=== PATIENT | female | born 1935 | race Caucasian/White ===

== ENCOUNTER 2020-01-30 21:16 | Emergency (ER) | payer OTHER ==
[~2020-01-30] VITALS: Ht 172.7 cm; Wt 77.1 kg
[2020-01-30 21:35] VITALS: BP_SYST 150
[2020-01-30] MEDS ORDERED: BACITRACIN 1 GM OINT TP ONE (21:45)
[2020-01-30] MEDS ORDERED: ALPR0.25 PO (21:48)
[2020-01-30] MEDS ORDERED: SYN50 PO (21:49)
[2020-01-30] MEDS ORDERED: TRIA1TAB96 PO (21:49)
[2020-01-30] MEDS ORDERED: SIMV10TA2 PO (21:49)
[2020-01-30] MEDS ORDERED: ALLO100T PO (21:50)
[2020-01-30] MEDS ORDERED: DICL100G19 TP (21:50)
[2020-01-30] MEDS ORDERED: ASPI-1153 PO (21:52)
[2020-01-30] MEDS ORDERED: FLUO60SO3 TP (21:52)
[2020-01-30] MEDS ORDERED: OMEG-143 PO (21:54)
[2020-01-30] MEDS ORDERED: CRAN200C PO (21:54)
[2020-01-30] MEDS ORDERED: [UNRECOGNIZED DRUG - CODE] PO (21:55)
[2020-01-30] MEDS ORDERED: MULT-1243 PO (21:56)
[2020-01-30] MEDS ORDERED: CALC-1085 PO (21:56)
[2020-01-30] MEDS ORDERED: CHON400C PO (21:58)
[2020-01-30] MEDS ORDERED: TURM500C9 PO (21:58)
[2020-01-30 22:07] VITALS: BP_SYST 150
== END 2020-01-30 22:07 | disposition home or self-care (01) ==
LOC: SED 21:16
DX: S51.811A Laceration without foreign body of right forearm, initial encounter (principal); Z88.0 Allergy status to penicillin; Z88.1 Allergy status to other antibiotic agents; Z88.2 Allergy status to sulfonamides; Z88.6 Allergy status to analgesic agent; Z88.8 Allergy status to other drugs, medicaments and biological substances; Z79.82 Long term (current) use of aspirin; Z79.899 Other long term (current) drug therapy; W18.39XA Other fall on same level, initial encounter; Y93.89 Activity, other specified; Y92.89 Other specified places as the place of occurrence of the external cause; Y99.8 Other external cause status
CPT/HCPCS: 99283